=== PATIENT | male | born 1955 | race Hispanic/Latino ===

== ENCOUNTER 2020-08-28 | Emergency (ER) | payer BC ==
[2020-08-28 00:36] LABS: Hemoglobin 10.1 g/dL (14.0-18.0); Mean Corpuscular HGB CONC 29.8 g/dL (32.0-36.0); Mean Corpuscular Hemoglobin 23.8 pg (27.0-31.0); Mean Corpuscular Volume 79.9 fL (78.0-98.0); Mean Platelet Volume 9.2 fL (7.4-10.4); Platelet Count 176 thou/uL (130-400); RBC Distribution Width 17.1 % (11.5-14.5); Red Blood Cell (RBC) Count 4.26 mill/uL (4.70-6.10); White Blood Cell (WBC) Count 7.5 thou/uL (4.8-10.8)
[2020-08-28 00:53] LABS: Lymphocytes 57 % (21-51); MDiff Complete? YES; Monocytes 14 % (0-10); Neutrophil 29 % (42-75); Target Cells SLIGHT = 2-5 cells (100X) (0-1/hpf)
[2020-08-28 01:02] LABS: ALT (SGPT) 55 U/L (8-55); AST (SGOT) 103 U/L (5-34); Albumin 3.1 g/dL (3.4-4.8); Alkaline Phosphatase 111 U/L (40-110); Anion Gap 11 mmol/L (10-20); BUN (Urea Nitrogen) 14 mg/dL (8.4-25.7); Bilirubin, Total 0.5 mg/dL (0.2-1.2); Calc. Creatinine Clearance 0 mL/min (70-130); Calcium 8.7 mg/dL (7.8-10.44); Carbon Dioxide 22 mmol/L (23-31); Chloride 104 mmol/L (98-107); Globulin 6.5 g/dL (2.4-3.5); Glucose 120 mg/dL (80-115); Potassium 3.3 mmol/L (3.5-5.1); Protein, Total 9.6 g/dL (5.8-8.1); Sodium 134 mmol/L (136-145)
== END 2020-08-28 02:00 | disposition home or self-care (01) ==
LOC: ERS
DX: I49.1 Atrial premature depolarization (principal); I10 Essential (primary) hypertension; F17.210 Nicotine dependence, cigarettes, uncomplicated
CPT/HCPCS: 36415; 71045; 80053; 84484; 85025; 93005

== ENCOUNTER 2020-11-19 07:25 | Inpatient (IN) | payer BC ==
[2020-11-19 08:09] LABS: Hemoglobin 7.9 g/dL (14.0-18.0); Mean Corpuscular HGB CONC 30.6 g/dL (32.0-36.0); Mean Corpuscular Hemoglobin 26.6 pg (27.0-31.0); Mean Corpuscular Volume 87.2 fL (78.0-98.0); Mean Platelet Volume 8.3 fL (7.4-10.4); Platelet Count 197 thou/uL (130-400); RBC Distribution Width 16.2 % (11.5-14.5); Red Blood Cell (RBC) Count 2.98 mill/uL (4.70-6.10); White Blood Cell (WBC) Count 8.6 thou/uL (4.8-10.8)
[2020-11-19 08:21] LABS: ALT (SGPT) 63 U/L (8-55); AST (SGOT) 103 U/L (5-34); Albumin 2.6 g/dL (3.4-4.8); Alcohol Less than 10 mg/dL (Less than 10); Alkaline Phosphatase 82 U/L (40-110); Anion Gap 15 mmol/L (10-20); BUN (Urea Nitrogen) 33 mg/dL (8.4-25.7); Bilirubin, Total 0.5 mg/dL (0.2-1.2); Calc. Creatinine Clearance 0 mL/min (70-130); Calcium 8.2 mg/dL (7.8-10.44); Carbon Dioxide 15 mmol/L (23-31); Chloride 107 mmol/L (98-107); Globulin 5.4 g/dL (2.4-3.5); Glucose 138 mg/dL (80-115); Potassium 4.2 mmol/L (3.5-5.1); Sodium 133 mmol/L (136-145)
[2020-11-19 08:22] LABS: Band 1 % (5-11); Lymphocytes 44 % (21-51); MDiff Complete? YES; Monocytes 7 % (0-10); Neutrophil 46 % (42-75); Platelet Morphology Comment Appears Adequate
[2020-11-19] MEDS ORDERED: Morphine 4 MG/ML VIAL ONE (08:40)
[2020-11-19] MEDS ORDERED: Ondansetron PF 4 MG/2 ML Vial ONE ×2 (08:40→14:27)
[2020-11-19] MEDS ORDERED: Iopamidol-370 76% 500 ML 1 ML ONE (09:11)
[2020-11-19 10:13] LABS: Bilirubin Negative (Negative); Blood, Urine Negative (Negative); Clarity Clear (Clear); Glucose, Urine (Dipstick) Normal (Negative); Ketone, Urine 10 mg/dL (Negative); Leukocyte Negative Leu/uL (Negative); Nitrite Negative (Negative); Protein, Urine (Dipstick) Negative (Neg-Trace); Urobilinogen Normal mg/dL (Less than 2)
[2020-11-19 10:24] LABS: Specific Gravity, Urine 1.042 (1.002-1.036)
[2020-11-19] MEDS ORDERED: Ondansetron PF 4 MG/2 ML Vial IVP PRN (11:15)
[2020-11-19] MEDS ORDERED: Pantoprazole 40 MG VIAL ONE (11:24)
[2020-11-19] MEDS ORDERED: Pantoprazole 40 MG VIAL IVP SCH (11:45)
[2020-11-19] MEDS: Sodium Chloride 0.9% 1,000 ML IV SCH ×2 (13:06→22:35)
[2020-11-19] MEDS: Pantoprazole 80 MG in Sodium Chloride 0.9% 100 ML IVPB SCH ×2 (13:06→22:33)
[2020-11-19 13:20] VITALS: BMI 26.5
[2020-11-19 13:58] LABS: SARS-CoV-2 NAA Rapid Test Not Detected (NotDetected)
[2020-11-19] MEDS ORDERED: Fentanyl 100 MCG/2 ML VIAL ONE (14:00)
[2020-11-19] MEDS ORDERED: Ketamine 50 MG/ML (10ML VIAL) ONE (14:01)
[2020-11-19] MEDS ORDERED: SUGAMMADEX SODIUM 200 MG/2 ML VIAL ONE (14:01)
[2020-11-19] MEDS ORDERED: Midazolam HCl 2 mg/2 ml Vial ONE (14:01)
[2020-11-19] MEDS ORDERED: Succinylcholine 200 MG/10 ml SYRINGE FS ONE (14:27)
[2020-11-19] MEDS ORDERED: PROPOFOL 200 MG/20 ML VIAL ONE (14:27)
[2020-11-19] MEDS ORDERED: Dexamethasone 20 MG/5 ML VIAL ONE (14:27)
[2020-11-19 14:38] LABS: Troponin I 0.048 ng/mL (< 0.028)
[2020-11-19] MEDS ORDERED: Ondansetron HCl/PF 4 MG/2 ML Vial IVP PRN (15:08)
[2020-11-19] MEDS: Acetaminophen 325 MG TAB PO PRN (15:46)
[2020-11-19] MEDS ORDERED: Morphine 2 MG/ML VIAL SLOW IVP PRN (15:59)
[2020-11-19] MEDS: Melatonin 3 MG TAB PO PRN (22:32)
[2020-11-20] MEDS: Sodium Chloride 0.9% 1,000 ML IV SCH (07:59)
[2020-11-20 11:45] LABS: #Lymphocytes 2.5 thou/uL (1.20-3.40); #Monocytes 1.2 thou/uL (0.11-0.59); %Basophils 0.1 % (0.0-1.0); %Lymphocytes 19.4 % (21.0-51.0); %Monocytes 9.2 % (0.0-10.0); %Neutrophils 71.3 % (42.0-75.0); Hemoglobin 6.6 g/dL (14.0-18.0); Mean Corpuscular HGB CONC 30.2 g/dL (32.0-36.0); Mean Corpuscular Hemoglobin 26.4 pg (27.0-31.0); Mean Corpuscular Volume 87.3 fL (78.0-98.0); Mean Platelet Volume 7.7 fL (7.4-10.4); Platelet Count 205 thou/uL (130-400); RBC Distribution Width 16.4 % (11.5-14.5); White Blood Cell (WBC) Count 12.6 thou/uL (4.8-10.8)
[2020-11-20 12:07] LABS: Anion Gap 10 mmol/L (10-20); BUN (Urea Nitrogen) 18 mg/dL (8.4-25.7); Calc. Creatinine Clearance 98 mL/min (70-130); Carbon Dioxide 16 mmol/L (23-31); Chloride 112 mmol/L (98-107); Glucose 137 mg/dL (80-115); Iron 10 ug/dL (65-175); Iron 9 ug/dL (65-175); Iron Binding Capacity, Total 430 mcg/dL (261-462); Iron Binding Capacity, Total 438 mcg/dL (261-462); Sodium 134 mmol/L (136-145)
[2020-11-20 12:26] LABS: Ferritin 9.14 ng/mL (22-322)
[2020-11-20 12:40] LABS: HBCM Index 0.12 S/CO (0-0.79); HBSAg Index 0.21 S/CO (0-0.99); Hep A IgM AB Non-Reactive (NonReactive); Hep A IgM S/CO 0.75 S/CO (0-0.79); Hep B Surf Ag Non-Reactive S/CO (NonReactive); Hepatitis B Core IgM Abs Non-Reactive (NonReactive)
[2020-11-20 12:43] LABS: Hep C IgG Ab Reflex HepC Qnt (NonReactive); Hep C Index 7.59 S/CO (0-0.79)
[2020-11-20] MEDS: Acetaminophen 325 MG TAB PO PRN ×2 (13:55→23:49)
[2020-11-20] MEDS: Melatonin 3 MG TAB PO PRN (20:29)
[2020-11-20] MEDS: Pantoprazole 80 MG in Sodium Chloride 0.9% 100 ML IVPB SCH (22:13)
[2020-11-21 07:21] LABS: Hemoglobin 7.7 g/dL (14.0-18.0); Mean Corpuscular HGB CONC 30.9 g/dL (32.0-36.0); Mean Corpuscular Hemoglobin 27.4 pg (27.0-31.0); Mean Corpuscular Volume 88.8 fL (78.0-98.0); Mean Platelet Volume 7.9 fL (7.4-10.4); Platelet Count 223 thou/uL (130-400); RBC Distribution Width 16.1 % (11.5-14.5); Red Blood Cell (RBC) Count 2.81 mill/uL (4.70-6.10); White Blood Cell (WBC) Count 12.4 thou/uL (4.8-10.8)
[2020-11-21 07:38] LABS: ALT (SGPT) 50 U/L (8-55); AST (SGOT) 69 U/L (5-34); Albumin 2.7 g/dL (3.4-4.8); Alkaline Phosphatase 84 U/L (40-110); Bilirubin, Direct 0.4 mg/dL (0.1-0.3); Bilirubin, Total 0.7 mg/dL (0.2-1.2); Protein, Total 7.4 g/dL (5.8-8.1)
[2020-11-21] MEDS: Ferrous Sulfate 325 MG TAB PO SCH ×2 (08:27→17:53)
[2020-11-21 18:05] VITALS: BP 111/68; TEMP 98.7
[2020-11-22 11:39] LABS: HCV log10 5.422 (.); Hep C PCR-Quant 264000 IU/mL (.)
== END 2020-11-21 18:09 | disposition home or self-care (01) | DRG 378 ==
LOC: ERS 07:25 → INTOOBSV 10:58 → ERHOLD 10:58 → 2NO 12:47 → OBSVTOIN 11-21 06:31
PROVIDERS: ADMIT Internal Medicine; ATTEND Emergency Medicine
PROC: 0W3P8ZZ Control Bleeding in Gastrointestinal Tract, Via Natural or Artificial Opening Endoscopic (ICD-10-PCS; principal; 2020-11-21)
PROC: 30233N1 Transfusion of Nonautologous Red Blood Cells into Peripheral Vein, Percutaneous Approach (ICD-10-PCS; 2020-11-21)
DX: K25.0 Acute gastric ulcer with hemorrhage (principal); E87.1 Hypo-osmolality and hyponatremia; D62 Acute posthemorrhagic anemia; R94.5 Abnormal results of liver function studies; D50.9 Iron deficiency anemia, unspecified; I95.9 Hypotension, unspecified; Z90.49 Acquired absence of other specified parts of digestive tract; Z88.5 Allergy status to narcotic agent
CPT/HCPCS: 36415; 36430; 70450; 71275; 72125; 72128; 76705; 80048; 80053; 80074; 80076; 80307; 81003; 82728; 83540; 83550; 84484; 85025; 85027; 85379; 86850; 86900; 86901; 87522; 88305; 88312; 93005; 93306; 96374; 96375; 96376; C9113; G0378; J1100; J2250; J2270; J2405; J2704; J3010; J3490; P9016; Q9967; U0002; U0005

== ENCOUNTER 2020-11-24 02:24 | Emergency (ER) | payer BC | END 2020-11-24 04:14 | disposition home or self-care (01) | LOC: ERS 02:24 | DX: I80.8 Phlebitis and thrombophlebitis of other sites (principal); I10 Essential (primary) hypertension; F17.210 Nicotine dependence, cigarettes, uncomplicated; Z87.19 Personal history of other diseases of the digestive system; Z79.899 Other long term (current) drug therapy; Z79.1 Long term (current) use of non-steroidal anti-inflammatories (NSAID) | CPT/HCPCS: 99283 ==

== ENCOUNTER 2021-12-10 12:00 | Inpatient (IN) | payer BC ==
[2021-12-10] MEDS ORDERED: Pantoprazole 40 MG VIAL ONE (12:50)
[2021-12-10] MEDS ORDERED: Famotidine/PF 20 mg/2ml Vial ONE (12:50)
[2021-12-10] MEDS ORDERED: Morphine 4 MG/ML VIAL ONE ×2 (12:56→14:19)
[2021-12-10 13:33] LABS: ALT (SGPT) 46 U/L (8-55); AST (SGOT) 95 U/L (5-34); Albumin 2.5 g/dL (3.4-4.8); Alkaline Phosphatase 95 U/L (40-110); Anion Gap 11 mmol/L (10-20); BUN (Urea Nitrogen) 11 mg/dL (8.4-25.7); Bilirubin, Total 1.8 mg/dL (0.2-1.2); Calc. Creatinine Clearance 0 mL/min (70-130); Calcium 8.3 mg/dL (7.8-10.44); Carbon Dioxide 21 mmol/L (23-31); Chloride 108 mmol/L (98-107); Estimated GFR 100; Globulin 4.7 g/dL (2.4-3.5); Glucose 117 mg/dL (80-115); Lipase 15 U/L (8-78); Potassium 4.1 mmol/L (3.5-5.1); Protein, Total 7.2 g/dL (5.8-8.1); Sodium 136 mmol/L (136-145)
[2021-12-10 13:59] LABS: #Basophils 0.1 thou/uL (0.0-0.2); #Lymphocytes 2.2 thou/uL (1.20-3.40); #Monocytes 0.5 thou/uL (0.11-0.59); #Neutrophils 1.7 thou/uL (1.40-6.50); %Basophils 1.4 % (0.0-1.0); %Eosinophils 0.2 % (0.0-10.0); %Lymphocytes 48.8 % (21.0-51.0); %Monocytes 12.1 % (0.0-10.0); %Neutrophils 37.6 % (42.0-75.0); Hemoglobin 13.3 g/dL (14.0-18.0); MDiff Complete? YES; Macrocytosis MODERATE=16-30 cells (100X) (0-5/hpf); Mean Corpuscular HGB CONC 32.3 g/dL (32.0-36.0); Mean Corpuscular Hemoglobin 35.3 pg (27.0-31.0); Mean Platelet Volume 8.8 fL (7.4-10.4); Platelet Count 98 thou/uL (130-400); Platelet Morphology Comment Appears Decreased; Polychromasia SLIGHT = 2-3 cells (100X) (0-2/hpf); RBC Distribution Width 14.5 % (11.5-14.5); Red Blood Cell (RBC) Count 3.77 mill/uL (4.70-6.10); Target Cells SLIGHT = 2-5 cells (100X) (0-1/hpf); White Blood Cell (WBC) Count 4.5 thou/uL (4.8-10.8)
[2021-12-10] MEDS ORDERED: Ondansetron PF 4 MG/2 ML Vial IVP PRN (16:12)
[2021-12-10] MEDS ORDERED: Ondansetron ODT 4 MG TAB PO PRN (16:12)
[2021-12-10] MEDS ORDERED: hydrALAZINE 20 MG/ML VIAL SLOW IVP PRN (16:20)
[2021-12-10 16:50] VITALS: BMI 26.9
[2021-12-10 16:54] LABS: HBCM Index 0.22 S/CO (0-0.79); HBSAg Index 0.37 S/CO (0-0.99); Hep B Surf Ag Non-Reactive S/CO (NonReactive); Hepatitis B Core IgM Abs Non-Reactive (NonReactive)
[2021-12-10 17:58] LABS: Hep A IgM AB Equivocal (NonReactive); Hep A IgM S/CO 1.04 S/CO (0-0.79)
[2021-12-10] MEDS: Morphine 4 MG/ML VIAL SLOW IVP PRN ×2 (18:43→22:48)
[2021-12-11] MEDS: Morphine 4 MG/ML VIAL SLOW IVP PRN ×5 (02:53→22:04)
[2021-12-11 03:29] LABS: Amphetamine Not Detected (NotDetected); Barbiturates Screen Not Detected (NotDetected); Benzodiazepine Screen Not Detected (NotDetected); Cocaine Metabolite Screen Detected (NotDetected); Methadone Not Detected (NotDetected); Methamphetamine Not Detected (NotDetected); Opiate Screen Detected (NotDetected); Oxycodone Screen Not Detected (NotDetected); Phencyclidine (PCP) Not Detected (NotDetected); THC/Cannabinoid Screen Detected (NotDetected); Tricyclic Screen Detected (NotDetected)
[2021-12-11 05:45] LABS: INR-International Normal Ratio 1.5; Prothrombin Time 17.9 sec (12.0-14.7)
[2021-12-11 06:02] LABS: ALT (SGPT) 57 U/L (8-55); AST (SGOT) 113 U/L (5-34); Albumin 2.8 g/dL (3.4-4.8); Alkaline Phosphatase 123 U/L (40-110); Anion Gap 11 mmol/L (10-20); BUN (Urea Nitrogen) 9 mg/dL (8.4-25.7); Bilirubin, Total 1.6 mg/dL (0.2-1.2); Calc. Creatinine Clearance 93 mL/min (70-130); Calcium 8.6 mg/dL (7.8-10.44); Carbon Dioxide 23 mmol/L (23-31); Chloride 103 mmol/L (98-107); Estimated GFR 98; Globulin 4.9 g/dL (2.4-3.5); Glucose 120 mg/dL (80-115); Iron Binding Capacity, Total 328 mcg/dL (261-462); Potassium 3.7 mmol/L (3.5-5.1); Protein, Total 7.7 g/dL (5.8-8.1); Sodium 133 mmol/L (136-145)
[2021-12-11 06:21] LABS: Ferritin 49.33 ng/mL (22-322)
[2021-12-11 06:24] LABS: Band 3 % (5-11); Hemoglobin 13.7 g/dL (14.0-18.0); Lymphocytes 30 % (21-51); MDiff Complete? YES; Macrocytosis SLIGHT = 6-15 cells (100X) (0-5/hpf); Mean Corpuscular HGB CONC 31.5 g/dL (32.0-36.0); Mean Corpuscular Hemoglobin 34.9 pg (27.0-31.0); Mean Platelet Volume 8.9 fL (7.4-10.4); Monocytes 10 % (0-10); Neutrophil 54 % (42-75); Platelet Count 98 thou/uL (130-400); Platelet Morphology Comment Appears Decreased; RBC Distribution Width 14.5 % (11.5-14.5); Reactive Lymphocytes 3 % (0-10); Red Blood Cell (RBC) Count 3.91 mill/uL (4.70-6.10); White Blood Cell (WBC) Count 5.2 thou/uL (4.8-10.8)
[2021-12-11 07:09] LABS: HBSAB Concentration 73.81 mIU/mL; Hep B Surf AB Reactive (NonReactive)
[2021-12-11 07:54] LABS: Hep C IgG Ab Reflex HepC Qnt (NonReactive); Hep C Index 5.57 S/CO (0-0.79)
[2021-12-11] MEDS ORDERED: Pantoprazole 40 MG VIAL IVP SCH (09:00)
[2021-12-12] MEDS: Morphine 4 MG/ML VIAL SLOW IVP PRN ×3 (02:00→12:18)
[2021-12-12 05:32] LABS: #Lymphocytes 2.7 thou/uL (1.20-3.40); #Monocytes 0.7 thou/uL (0.11-0.59); #Neutrophils 2.1 thou/uL (1.40-6.50); %Basophils 0.4 % (0.0-1.0); %Eosinophils 0.2 % (0.0-10.0); %Monocytes 12.4 % (0.0-10.0); %Neutrophils 37.9 % (42.0-75.0); Hemoglobin 13.1 g/dL (14.0-18.0); Mean Corpuscular HGB CONC 32.5 g/dL (32.0-36.0); Mean Corpuscular Hemoglobin 35.7 pg (27.0-31.0); Mean Platelet Volume 8.9 fL (7.4-10.4); Platelet Count 78 thou/uL (130-400); RBC Distribution Width 14.3 % (11.5-14.5); Red Blood Cell (RBC) Count 3.68 mill/uL (4.70-6.10); White Blood Cell (WBC) Count 5.6 thou/uL (4.8-10.8)
[2021-12-12 05:50] LABS: ALT (SGPT) 56 U/L (8-55); AST (SGOT) 122 U/L (5-34); Albumin 2.5 g/dL (3.4-4.8); Alkaline Phosphatase 112 U/L (40-110); Anion Gap 14 mmol/L (10-20); BUN (Urea Nitrogen) 8 mg/dL (8.4-25.7); Bilirubin, Total 1.8 mg/dL (0.2-1.2); Calc. Creatinine Clearance 105 mL/min (70-130); Calcium 8.5 mg/dL (7.8-10.44); Carbon Dioxide 16 mmol/L (23-31); Chloride 106 mmol/L (98-107); Estimated GFR 101; Globulin 5.1 g/dL (2.4-3.5); Glucose 102 mg/dL (80-115); Potassium 4.2 mmol/L (3.5-5.1); Protein, Total 7.6 g/dL (5.8-8.1); Sodium 132 mmol/L (136-145)
[2021-12-12] MEDS ORDERED: Spironolactone 25 MG TAB PO SCH (08:00)
[2021-12-12 08:35] VITALS: BP 128/78; TEMP 97.5
[2021-12-12] MEDS ORDERED: Furosemide 20 MG TAB PO SCH (09:00)
[2021-12-12] MEDS ORDERED: Magnevist 469MG/ML 20 ML VIAL ONE (13:46)
== END 2021-12-12 14:30 | disposition home or self-care (01) | DRG 433 ==
LOC: ERS 12:00 → ERHOLD 15:01 → MSONC 16:37
PROVIDERS: ADMIT Hospitalist; ATTEND Internal Medicine
DX: K70.31 Alcoholic cirrhosis of liver with ascites (principal); D61.818 Other pancytopenia; J90 Pleural effusion, not elsewhere classified; R10.13 Epigastric pain; I10 Essential (primary) hypertension; F19.10 Other psychoactive substance abuse, uncomplicated; B18.2 Chronic viral hepatitis C; F17.210 Nicotine dependence, cigarettes, uncomplicated; Z87.11 Personal history of peptic ulcer disease; Z88.6 Allergy status to analgesic agent; Z79.899 Other long term (current) drug therapy; Z90.49 Acquired absence of other specified parts of digestive tract; Z82.49 Family history of ischemic heart disease and other diseases of the circulatory system; Z71.51 Drug abuse counseling and surveillance of drug abuser
CPT/HCPCS: 36415; 49083; 74177; 74183; 80053; 80074; 80306; 82105; 82390; 82728; 83516; 83550; 83690; 84484; 85025; 85610; 86015; 86706; 86708; 86850; 86900; 86901; 93005; 96361; 96374; 96375; 96376; A9579; C9113; J2270; S0028; U0003; U0005

== ENCOUNTER 2022-02-16 18:04 | Emergency (ER) | payer BC ==
[~2022-02-16 18:04] MED LIST: Iopamidol-370 76% 500 ML 1 ML ONE
[2022-02-16] MEDS ORDERED: Morphine 4 MG/ML VIAL ONE ×2 (18:33→20:57)
[2022-02-16] MEDS ORDERED: Ondansetron PF 4 MG/2 ML Vial ONE (18:34)
[2022-02-16] MEDS ORDERED: Pantoprazole 40 MG VIAL ONE (18:50)
[2022-02-16 18:51] LABS: Hemoglobin 12.4 g/dL (14.0-18.0); Mean Corpuscular HGB CONC 33.8 g/dL (32.0-36.0); Mean Corpuscular Hemoglobin 38.4 pg (27.0-31.0); Platelet Count 73 thou/uL (130-400); RBC Distribution Width 14.4 % (11.5-14.5); Red Blood Cell (RBC) Count 3.23 mill/uL (4.70-6.10); White Blood Cell (WBC) Count 4.5 thou/uL (4.8-10.8)
[2022-02-16] MEDS ORDERED: Mag-Al 1200 mg/1200 mg/30 ML UDCUP ONE (18:51)
[2022-02-16] MEDS ORDERED: Lidocaine Viscous Sol 2% 15 ml UD Cup ONE (18:51)
[2022-02-16 19:09] LABS: ALT (SGPT) 52 U/L (8-55); AST (SGOT) 106 U/L (5-34); Albumin 2.4 g/dL (3.4-4.8); Alkaline Phosphatase 116 U/L (40-110); Anion Gap 11 mmol/L (10-20); BUN (Urea Nitrogen) 11 mg/dL (8.4-25.7); Band 2 % (5-11); Bilirubin, Total 2.6 mg/dL (0.2-1.2); Calc. Creatinine Clearance 0 mL/min (70-130); Calcium 8.3 mg/dL (7.8-10.44); Carbon Dioxide 21 mmol/L (23-31); Chloride 108 mmol/L (98-107); Estimated GFR 101; Globulin 5.2 g/dL (2.4-3.5); Glucose 126 mg/dL (80-115); Lipase 24 U/L (8-78); Lymphocytes 51 % (21-51); MDiff Complete? YES; Macrocytosis SLIGHT = 6-15 cells (100X) (0-5/hpf); Monocytes 9 % (0-10); Neutrophil 37 % (42-75); Platelet Morphology Comment Appears Decreased; Potassium 3.5 mmol/L (3.5-5.1); Protein, Total 7.6 g/dL (5.8-8.1); Sodium 136 mmol/L (136-145)
[2022-02-16 21:41] LABS: Lactic Acid 1.3 mmol/L (0.5-2.2)
== END 2022-02-16 22:07 | disposition home or self-care (01) ==
LOC: ERS 18:04
DX: R10.13 Epigastric pain (principal); R17 Unspecified jaundice; F17.210 Nicotine dependence, cigarettes, uncomplicated; D64.9 Anemia, unspecified; D72.819 Decreased white blood cell count, unspecified
CPT/HCPCS: 71045; 74177; 80053; 83605; 83690; 84484; 85025; 93005; 96374; 96375; 96376; C9113; J2270; J2405; Q9967

== ENCOUNTER 2022-05-16 14:46 | Inpatient (IN) | payer BC, SELFPAY ==
[2022-05-16] MEDS ORDERED: Ondansetron PF 4 MG/2 ML Vial ONE (15:35)
[2022-05-16] MEDS ORDERED: LORazepam 2 MG/ML SYR.(CARPUJECT) ONE (15:35)
[2022-05-16] MEDS ORDERED: Morphine 4 MG/ML VIAL ONE (15:35)
[2022-05-16] MEDS ORDERED: Iopamidol-370 76% 500 ML 1 ML ONE (15:51)
[2022-05-16 16:37] LABS: Hemoglobin 12.2 g/dL (14.0-18.0); Mean Corpuscular HGB CONC 33.4 g/dL (32.0-36.0); Mean Corpuscular Hemoglobin 39.7 pg (27.0-31.0); Mean Platelet Volume 8.2 fL (7.4-10.4); Platelet Count 99 10x3/uL (130-400); RBC Distribution Width 14.3 % (11.5-14.5); Red Blood Cell (RBC) Count 3.08 mill/uL (4.70-6.10); White Blood Cell (WBC) Count 3.9 10x3/uL (4.8-10.8)
[2022-05-16 16:59] LABS: ALT (SGPT) 31 U/L (8-55); AST (SGOT) 71 U/L (5-34); Albumin 2.6 g/dL (3.4-4.8); Alkaline Phosphatase 142 U/L (40-110); Anion Gap 12 mmol/L (10-20); BUN (Urea Nitrogen) 23 mg/dL (8.4-25.7); Bilirubin, Total 3.1 mg/dL (0.2-1.2); CK (CPK) 58 U/L (30-200); Calc. Creatinine Clearance 0 mL/min (70-130); Calcium 8.7 mg/dL (7.8-10.44); Carbon Dioxide 21 mmol/L (23-31); Chloride 101 mmol/L (98-107); Estimated GFR 79; Globulin 5.3 g/dL (2.4-3.5); Glucose 105 mg/dL (80-115); Lipase 23 U/L (8-78); Potassium 4.3 mmol/L (3.5-5.1); Protein, Total 7.9 g/dL (5.8-8.1); Sodium 130 mmol/L (136-145)
[2022-05-16 17:00] LABS: Lymphocytes 19 % (21-51); MDiff Complete? YES; Macrocytosis SLIGHT = 6-15 cells (100X) (0-5/hpf); Monocytes 15 % (0-10); Neutrophil 66 % (42-75); Platelet Morphology Comment Appears Decreased
[2022-05-16 18:28] LABS: INR-International Normal Ratio 1.6; Prothrombin Time 19.4 sec (12.0-14.7)
[2022-05-16 18:29] LABS: PTT 43.2 sec (22.9-36.1)
[2022-05-16] MEDS ORDERED: Heparin 10,000 UNITS/ 10 ML VIAL ONE (19:36)
[2022-05-16] MEDS ORDERED: Heparin 25,000 units/D5W 500 ML ONE (19:36)
[2022-05-16] MEDS ORDERED: Ondansetron ODT 4 MG TAB PO PRN (19:48)
[2022-05-16] MEDS ORDERED: Heparin 10,000 UNITS/ 10 ML VIAL SLOW IVP SCH (20:00)
[2022-05-16] MEDS ORDERED: Heparin 25,000 units/D5W 500 ML IVPB SCH (20:00)
[2022-05-16] MEDS: Acetaminophen 500 MG TAB PO PRN (22:13)
[2022-05-16] MEDS: Sodium Chloride 0.9% 1,000 ML IV SCH (22:13)
[2022-05-16] MEDS: cefTRIAXone\\ROCEPHIN 1 GM in Sodium Chloride 0.9% 100 ML IVPB SCH (22:13)
[2022-05-16] MEDS: Morphine 4 MG/ML VIAL SLOW IVP PRN (22:51)
[2022-05-17 03:30] LABS: Anion Gap 13 mmol/L (10-20); BUN (Urea Nitrogen) 22 mg/dL (8.4-25.7); Calc. Creatinine Clearance 91 mL/min (70-130); Calcium 8.7 mg/dL (7.8-10.44); Carbon Dioxide 19 mmol/L (23-31); Chloride 102 mmol/L (98-107); Estimated GFR 95; Glucose 105 mg/dL (80-115); Potassium 4.4 mmol/L (3.5-5.1); Sodium 130 mmol/L (136-145)
[2022-05-17 03:35] LABS: #Monocytes 0.5 thou/uL (0.11-0.59); #Neutrophils 2.6 thou/uL (1.40-6.50); %Basophils 0.6 % (0.0-1.0); %Eosinophils 0.1 % (0.0-10.0); %Lymphocytes 25.3 % (21.0-51.0); %Monocytes 11.7 % (0.0-10.0); %Neutrophils 62.4 % (42.0-75.0); Hemoglobin 12.3 g/dL (14.0-18.0); MDiff Complete? YES; Macrocytosis MODERATE=16-30 cells (100X) (0-5/hpf); Mean Corpuscular HGB CONC 34.3 g/dL (32.0-36.0); Mean Corpuscular Hemoglobin 42.1 pg (27.0-31.0); Mean Platelet Volume 7.9 fL (7.4-10.4); Platelet Count 85 10x3/uL (130-400); Platelet Morphology Comment Appears Decreased; RBC Distribution Width 14.4 % (11.5-14.5); Red Blood Cell (RBC) Count 2.92 mill/uL (4.70-6.10); Target Cells SLIGHT = 2-5 cells (100X) (0-1/hpf); White Blood Cell (WBC) Count 4.1 10x3/uL (4.8-10.8)
[2022-05-17 03:37] LABS: PTT Greater than 250.0 sec (22.9-36.1)
[2022-05-17] MEDS: Morphine 4 MG/ML VIAL SLOW IVP PRN ×4 (05:03→20:12)
[2022-05-17 05:37] LABS: PTT Greater than 250.0 sec (22.9-36.1)
[2022-05-17 06:52] VITALS: BMI 25.7
[2022-05-17] MEDS ORDERED: FLU VACC QS2022-23(65YR UP)/PF 240 MCG/0.7 ML SYRINGE IM ONE (09:00)
[2022-05-17] MEDS: Sodium Chloride 0.9% 1,000 ML IV SCH (09:10)
[2022-05-17] MEDS ORDERED: Morphine 4 MG/ML VIAL SLOW IVP SCH (11:00)
[2022-05-17] MEDS: Albumin 25% 25 GM/100 ML BOT IVPB SCH ×3 (11:37→23:12)
[2022-05-17 16:04] LABS: PTT Greater than 250.0 sec (22.9-36.1)
[2022-05-17] MEDS: cefTRIAXone\\ROCEPHIN 1 GM in Sodium Chloride 0.9% 100 ML IVPB SCH (20:11)
[2022-05-18] MEDS: Morphine 4 MG/ML VIAL SLOW IVP PRN ×5 (00:30→23:41)
[2022-05-18] MEDS: Albumin 25% 25 GM/100 ML BOT IVPB SCH (05:31)
[2022-05-18 06:01] LABS: Anion Gap 9 mmol/L (10-20); BUN (Urea Nitrogen) 20 mg/dL (8.4-25.7); Calc. Creatinine Clearance 102 mL/min (70-130); Calcium 8.5 mg/dL (7.8-10.44); Carbon Dioxide 23 mmol/L (23-31); Chloride 103 mmol/L (98-107); Estimated GFR 98; Glucose 102 mg/dL (80-115); Potassium 4.1 mmol/L (3.5-5.1); Sodium 131 mmol/L (136-145)
[2022-05-18 06:19] LABS: Hemoglobin 9.5 g/dL (14.0-18.0); Lymphocytes 45 % (21-51); MDiff Complete? YES; Mean Corpuscular HGB CONC 32.1 g/dL (32.0-36.0); Mean Corpuscular Hemoglobin 38.5 pg (27.0-31.0); Mean Platelet Volume 8.2 fL (7.4-10.4); Monocytes 8 % (0-10); Neutrophil 45 % (42-75); Platelet Count 87 10x3/uL (130-400); Platelet Morphology Comment Appears Decreased; RBC Distribution Width 14.3 % (11.5-14.5); Red Blood Cell (RBC) Count 2.47 mill/uL (4.70-6.10); White Blood Cell (WBC) Count 5.9 10x3/uL (4.8-10.8)
[2022-05-18] MEDS ORDERED: PROPOFOL 200 MG/20 ML VIAL ONE (08:30)
[2022-05-18] MEDS ORDERED: Ondansetron HCl/PF 4 MG/2 ML Vial IVP PRN (08:39)
[2022-05-18] MEDS ORDERED: Promethazine HCl 25 MG/ML VIAL IM PRN (08:39)
[2022-05-18] MEDS ORDERED: Promethazine HCl 25 MG/ML VIAL IVPB PRN (08:39)
[2022-05-18] MEDS ORDERED: Nitroglycerin 0.4 MG TAB (25 Tab Bottle) ONE (09:47)
[2022-05-18] MEDS: Pantoprazole 40 MG VIAL IVP SCH (09:50)
[2022-05-18] MEDS: Acetaminophen 500 MG TAB PO PRN (11:17)
[2022-05-18] MEDS: Ondansetron PF 4 MG/2 ML Vial IVP PRN ×2 (15:34→23:41)
[2022-05-18] MEDS: cefTRIAXone\\ROCEPHIN 1 GM in Sodium Chloride 0.9% 100 ML IVPB SCH (19:42)
[2022-05-19] MEDS: Morphine 4 MG/ML VIAL SLOW IVP PRN ×3 (03:18→12:16)
[2022-05-19] MEDS: Pantoprazole 40 MG VIAL IVP SCH (08:07)
[2022-05-19 08:34] LABS: Hemoglobin 9.7 g/dL (14.0-18.0); Mean Corpuscular HGB CONC 32.8 g/dL (32.0-36.0); Mean Corpuscular Hemoglobin 39.4 pg (27.0-31.0); Platelet Count 85 10x3/uL (130-400); RBC Distribution Width 14.3 % (11.5-14.5); Red Blood Cell (RBC) Count 2.47 mill/uL (4.70-6.10); White Blood Cell (WBC) Count 4.8 10x3/uL (4.8-10.8)
[2022-05-19 08:48] LABS: Anion Gap 9 mmol/L (10-20); BUN (Urea Nitrogen) 16 mg/dL (8.4-25.7); Calc. Creatinine Clearance 114 mL/min (70-130); Calcium 8.3 mg/dL (7.8-10.44); Carbon Dioxide 22 mmol/L (23-31); Chloride 104 mmol/L (98-107); Estimated GFR 101; Glucose 83 mg/dL (80-115); Potassium 3.9 mmol/L (3.5-5.1); Sodium 131 mmol/L (136-145)
[2022-05-19 09:03] LABS: INR-International Normal Ratio 1.9; PTT 45.7 sec (22.9-36.1); Prothrombin Time 22.8 sec (12.0-14.7)
[2022-05-19] MEDS ORDERED: PROPOFOL 200 MG/20 ML VIAL ONE (09:53)
[2022-05-19] MEDS ORDERED: Lidocaine 1% PF 5 ML VIAL ONE (10:51)
[2022-05-19 12:50] LABS: RBC Count-Automated (BF) 130 /cu.mm; WBC/Nucleated-Auto (BF) 319 /cu.mm
[2022-05-19 13:05] LABS: BF Color Yellow; Body Fluid Source Ascites Body Fluid; Clarity Hazy (Clear); Tube # EDTA
[2022-05-19 13:48] LABS: BF Segmented Neutrophils 7 %; Cell Count Non Hematic 60 %; Lymphocytes 33 %
[2022-05-19] MEDS ORDERED: Heparin 10,000 UNITS/ 10 ML VIAL SLOW IVP SCH (14:15)
[2022-05-19] MEDS ORDERED: Heparin 25,000 units/D5W 500 ML IVPB SCH (14:15)
[2022-05-19 15:07] LABS: Hemoglobin 10.5 g/dL (14.0-18.0); Platelet Count 89 10x3/uL (130-400)
[2022-05-19] MEDS: cefTRIAXone\\ROCEPHIN 1 GM in Sodium Chloride 0.9% 100 ML IVPB SCH (21:01)
[2022-05-19] MEDS: Acetaminophen 500 MG TAB PO PRN (21:02)
[2022-05-19 22:19] LABS: PTT Greater than 250.0 sec (22.9-36.1)
[2022-05-20 07:56] LABS: Anion Gap 7 mmol/L (10-20); BUN (Urea Nitrogen) 13 mg/dL (8.4-25.7); Calc. Creatinine Clearance 119 mL/min (70-130); Calcium 7.9 mg/dL (7.8-10.44); Carbon Dioxide 24 mmol/L (23-31); Chloride 106 mmol/L (98-107); Estimated GFR 103; Glucose 106 mg/dL (80-115); Sodium 133 mmol/L (136-145)
[2022-05-20 08:39] VITALS: BP 96/61; TEMP 98.6
[2022-05-20] MEDS: Morphine 4 MG/ML VIAL SLOW IVP PRN (09:14)
[2022-05-20] MEDS: Pantoprazole 40 MG VIAL IVP SCH (09:15)
[2022-05-20 09:25] LABS: PTT Greater than 250.0 sec (22.9-36.1)
[2022-05-20 09:54] LABS: Hemoglobin 9.8 g/dL (14.0-18.0); Mean Corpuscular HGB CONC 32.7 g/dL (32.0-36.0); Mean Platelet Volume 8.3 fL (7.4-10.4); Platelet Count 94 10x3/uL (130-400); RBC Distribution Width 14.2 % (11.5-14.5); White Blood Cell (WBC) Count 4.9 10x3/uL (4.8-10.8)
[2022-05-20 10:22] LABS: Band 1 % (5-11); Lymphocytes 43 % (21-51); MDiff Complete? YES; Macrocytosis MODERATE=16-30 cells (100X) (0-5/hpf); Monocytes 11 % (0-10); Neutrophil 45 % (42-75); Platelet Morphology Comment Appears Decreased; Polychromasia SLIGHT = 2-3 cells (100X) (0-2/hpf); Target Cells SLIGHT = 2-5 cells (100X) (0-1/hpf)
== END 2022-05-20 13:20 | disposition left against medical advice (07) | DRG 432 ==
LOC: ERS 14:46 → NEURO 19:47 → T4-A 05-18 15:19
PROVIDERS: ADMIT Family Medicine; ATTEND Family Medicine
PROC: 0DJ08ZZ Inspection of Upper Intestinal Tract, Via Natural or Artificial Opening Endoscopic (ICD-10-PCS; principal; 2022-05-18)
PROC: 0DJ08ZZ Inspection of Upper Intestinal Tract, Via Natural or Artificial Opening Endoscopic (ICD-10-PCS; 2022-05-19)
PROC: 0W9G3ZZ Drainage of Peritoneal Cavity, Percutaneous Approach (ICD-10-PCS; 2022-05-19)
DX: K74.69 Other cirrhosis of liver (principal); Z20.822 Contact with and (suspected) exposure to COVID-19; Z23 Encounter for immunization; I81 Portal vein thrombosis; D61.818 Other pancytopenia; D62 Acute posthemorrhagic anemia; K76.6 Portal hypertension; R18.8 Other ascites; E87.1 Hypo-osmolality and hyponatremia; B19.20 Unspecified viral hepatitis C without hepatic coma; R04.0 Epistaxis; K31.89 Other diseases of stomach and duodenum; Z87.11 Personal history of peptic ulcer disease; Z88.5 Allergy status to narcotic agent; Z79.899 Other long term (current) drug therapy; Z90.49 Acquired absence of other specified parts of digestive tract; Z82.49 Family history of ischemic heart disease and other diseases of the circulatory system
CPT/HCPCS: 36415; 49083; 74018; 74177; 80048; 80053; 82550; 83690; 85025; 85027; 85060; 85610; 85730; 87070; 87205; 89051; 90471; 90662; 96365; 96375; C9113; G0008; J0696; J1644; J2060; J2270; J2405; J2704; J3490; J7050; P9047; Q9967; U0003; U0005

== ENCOUNTER 2022-06-28 16:05 | Inpatient (IN) | payer SELFPAY ==
[2022-06-28] MEDS ORDERED: Cefepime 2 GM VIAL ONE (16:40)
[2022-06-28] MEDS ORDERED: Vancomycin 1 GM/200 ML (FROZEN) BAG ONE (16:40)
[2022-06-28 16:43] LABS: Analyzer IN Cardio ER; Base Excess -8.7 mEq/L (-2.0 to +3.0); Calcium, Ionized (venous) 1.02 mmol/L (1.16-1.32); Chloride (VBG) 100 mmol/L (98-106); Hemoglobin (Hb) 13.4 g/dL (12.6-17.4); Potassium (VBG) 5.38 mmol/L (3.70-5.30); Sodium 128.3 mmol/L (133-146); pH (venous) 7.42 (7.32-7.43)
[2022-06-28 16:45] LABS: Actual Bicarbonate (HCO3v) 14 mEq/L (22-28)
[2022-06-28 16:48] LABS: Bilirubin Negative (Negative); Blood, Urine Negative (Negative); Clarity Clear (Clear); Glucose, Urine (Dipstick) Normal (Negative); Ketone, Urine Negative (Negative); Leukocyte Negative Leu/uL (Negative); Nitrite Negative (Negative); Protein, Urine (Dipstick) 10 mg/dL (Neg-Trace); Specific Gravity, Urine 1.018 (1.002-1.036); Urobilinogen Normal mg/dL (Less than 2); pH, Urine 5.5 (5.0-9.0)
[2022-06-28 16:57] LABS: Amphetamine Not Detected (NotDetected); Barbiturates Screen Not Detected (NotDetected); Benzodiazepine Screen Not Detected (NotDetected); Cocaine Metabolite Screen Detected (NotDetected); Methadone Not Detected (NotDetected); Methamphetamine Not Detected (NotDetected); Opiate Screen Not Detected (NotDetected); Oxycodone Screen Not Detected (NotDetected); Phencyclidine (PCP) Not Detected (NotDetected); THC/Cannabinoid Screen Not Detected (NotDetected); Tricyclic Screen Not Detected (NotDetected)
[2022-06-28 16:58] LABS: Hemoglobin 12.8 g/dL (14.0-18.0); Mean Corpuscular HGB CONC 35.3 g/dL (32.0-36.0); Mean Corpuscular Hemoglobin 42.8 pg (27.0-31.0); Mean Platelet Volume 8.5 fL (7.4-10.4); Platelet Count 92 10x3/uL (130-400)
[2022-06-28 17:08] LABS: INR-International Normal Ratio 1.8; PTT 38.5 sec (22.9-36.1)
[2022-06-28 17:15] LABS: Acetaminophen Less than 10.0 mcg/mL (10.0-30.0); Alcohol Less than 10 mg/dL (Less than 10); Lipase 42 U/L (8-78); Salicylate Less than 8.0 mg/dL (15.0-30.0)
[2022-06-28 17:16] LABS: ALT (SGPT) 25 U/L (8-55); AST (SGOT) 54 U/L (5-34); Albumin 2.5 g/dL (3.4-4.8); Alkaline Phosphatase 94 U/L (40-110); Anion Gap 25 mmol/L (10-20); BUN (Urea Nitrogen) 94 mg/dL (8.4-25.7); Bilirubin, Total 5.6 mg/dL (0.2-1.2); Calc. Creatinine Clearance 0 mL/min (70-130); Calcium 9.5 mg/dL (7.8-10.44); Carbon Dioxide 11 mmol/L (23-31); Chloride 100 mmol/L (98-107); Estimated GFR 16; Glucose 80 mg/dL (80-115); Potassium 5.5 mmol/L (3.5-5.1); Protein, Total 7.5 g/dL (5.8-8.1); Sodium 130 mmol/L (136-145)
[2022-06-28 17:22] LABS: Band 15 % (5-11); Lymphocytes 10 % (21-51); MDiff Complete? YES; Macrocytosis MODERATE=16-30 cells (100X) (0-5/hpf); Monocytes 17 % (0-10); Neutrophil 57 % (42-75); Platelet Morphology Comment Appears Decreased; Polychromasia SLIGHT = 2-3 cells (100X) (0-2/hpf)
[2022-06-28 17:34] LABS: CKMB 3.4 ng/mL (0-6.6)
[2022-06-28 20:48] LABS: Lactic Acid 5.7 mmol/L (0.5-2.2)
[2022-06-28] MEDS ORDERED: Sodium Bicarbonate 2.5 MEQ/5 ML VIAL ONE (20:55)
[2022-06-28] MEDS ORDERED: Famotidine/PF 20 mg/2ml Vial SLOW IVP SCH ×2 (21:00)
[2022-06-28] MEDS ORDERED: Sodium Bicarbonate 150 MEQ in Dextrose 5% in Water 1,000 ML IV SCH (21:00)
[2022-06-28] MEDS ORDERED: Piperacillin/Tazobactam 3.375 GM in Sodium Chloride 0.9% 100 ML IVPB SCH (21:30)
[2022-06-28] MEDS ORDERED: Piperacillin/Tazobactam 2.25 GM in Sodium Chloride 0.9% 100 ML IVPB SCH (22:00)
[2022-06-28 22:09] LABS: Troponin I 0.033 ng/mL (< 0.028)
[2022-06-28] MEDS: Sodium Bicarbonate 150 MEQ in Dextrose 5% in Water 1,000 ML IV SCH (22:10)
[2022-06-28] MEDS ORDERED: Vancomycin Dose by Levels Sliding Scale (Wt <71) FS SCH (23:00)
[2022-06-28 23:39] LABS: Lactic Acid 5.1 mmol/L (0.5-2.2)
[2022-06-29] MEDS: Piperacillin/Tazobactam 3.375 GM in Sodium Chloride 0.9% 100 ML IVPB SCH ×2 (02:41→14:58)
[2022-06-29 04:25] LABS: Lactic Acid 4.2 mmol/L (0.5-2.2); Phosphorus 5.7 mg/dL (2.3-4.7)
[2022-06-29 04:28] LABS: ALT (SGPT) 24 U/L (8-55); AST (SGOT) 52 U/L (5-34); Albumin 2.3 g/dL (3.4-4.8); Alkaline Phosphatase 82 U/L (40-110); Anion Gap 19 mmol/L (10-20); BUN (Urea Nitrogen) 99 mg/dL (8.4-25.7); Bilirubin, Total 4.9 mg/dL (0.2-1.2); CK (CPK) 51 U/L (30-200); Calc. Creatinine Clearance 17 mL/min (70-130); Calcium 9.2 mg/dL (7.8-10.44); Carbon Dioxide 14 mmol/L (23-31); Chloride 100 mmol/L (98-107); Estimated GFR 16; Globulin 4.2 g/dL (2.4-3.5); Glucose 136 mg/dL (80-115); Magnesium 2.2 mg/dL (1.6-2.6); Potassium 5.1 mmol/L (3.5-5.1); Protein, Total 6.5 g/dL (5.8-8.1); Sodium 128 mmol/L (136-145)
[2022-06-29 04:45] LABS: Band 38 % (5-11); Hemoglobin 11.6 g/dL (14.0-18.0); Lymphocytes 7 % (21-51); MDiff Complete? YES; Macrocytosis MODERATE=16-30 cells (100X) (0-5/hpf); Mean Corpuscular HGB CONC 32.9 g/dL (32.0-36.0); Mean Corpuscular Hemoglobin 39.6 pg (27.0-31.0); Mean Platelet Volume 8.5 fL (7.4-10.4); Monocytes 9 % (0-10); Neutrophil 46 % (42-75); Platelet Count 82 10x3/uL (130-400); Platelet Morphology Comment Appears Decreased; RBC Distribution Width 14.2 % (11.5-14.5); Red Blood Cell (RBC) Count 2.93 mill/uL (4.70-6.10); Target Cells SLIGHT = 2-5 cells (100X) (0-1/hpf)
[2022-06-29 05:38] LABS: SARS-CoV-2 NAA Rapid Test Not Detected (NotDetected)
[2022-06-29 07:37] LABS: Lactic Acid 3.6 mmol/L (0.5-2.2)
[2022-06-29] MEDS: Sodium Bicarbonate 150 MEQ in Dextrose 5% in Water 1,000 ML IV SCH (07:51)
[2022-06-29] MEDS ORDERED: FLU VACC QS2022-23(65YR UP)/PF 240 MCG/0.7 ML SYRINGE IM ONE (09:00)
[2022-06-29] MEDS: Pantoprazole 40 MG VIAL IVP SCH ×2 (09:32→20:56)
[2022-06-29] MEDS: Heparin 5,000 UNITS/ML VIAL SC SCH ×3 (09:32→20:54)
[2022-06-29] MEDS ORDERED: Sodium Bicarbonate 150 MEQ in Dextrose 5% in Water 1,000 ML IV SCH (11:30)
[2022-06-29] MEDS ORDERED: Rocuronium Bromide 50 MG/5 ML VIAL ONE (13:15)
[2022-06-29] MEDS ORDERED: Rocuronium Bromide 10 MG/ML (10ML VIAL) IVP SCH ×2 (13:30→13:58)
[2022-06-29] MEDS ORDERED: Ventilator Sedation Protocol 1 EACH FS SCH (14:00)
[2022-06-29] MEDS ORDERED: Rocuronium Bromide 50 MG/5 ML VIAL IVP SCH (14:00)
[2022-06-29] MEDS ORDERED: Midazolam HCl 2 mg/2 ml Vial SLOW IVP PRN (14:02)
[2022-06-29] MEDS ORDERED: DISCONTINUE PREVIOUS NARCOTIC PAIN MEDICATIONS AND BENZODIAZEPINES FS SCH (14:15)
[2022-06-29] MEDS ORDERED: Propofol BOLUS 1,000 MG/100 ML VIAL IV PRN (14:15)
[2022-06-29] MEDS ORDERED: Morphine 4 MG/ML VIAL SLOW IVP PRN (14:15)
[2022-06-29] MEDS ORDERED: Propofol 1,000 MG/100 ML VIAL IV PRN (14:15)
[2022-06-29 14:48] LABS: Actual Bicarbonate (HCO3a) 21.5 mEq/L (22-28); Base Excess (BEa) -0.4 mEq/L (-2.0 to +3.0); CO2 Tension 27.6 mmHg (35.0-45.0); Calcium, Ionized (arterial) 1.08 mmol/L (1.12-1.30); Carboxyhemoglobin (COHb) 0.7 gm% (0.0-3.0); Hemoglobin (Hb) 12.6 g/dL (14.0-18.0); O2 Tension (PaO2), arterial 82.6 mmHg (> 80.0); Potassium - ABG Lab 4.55 mmol/L (3.70-5.30); pH, Arterial 7.51 (7.35-7.45)
[2022-06-29 14:50] LABS: Puncture Site LRA
[2022-06-29 15:31] LABS: Vancomycin, Random 14.4 ug/mL (See Comment)
[2022-06-29] MEDS ORDERED: Vancomycin Dose by Levels Sliding Scale (Wt <71) FS SCH (16:15)
[2022-06-29] MEDS ORDERED: Vancomycin HCl 500 MG in Sodium Chloride 0.9% 100 ML IVPB SCH (16:15)
[2022-06-29] MEDS ORDERED: cefTRIAXone\\ROCEPHIN 1 GM in Sodium Chloride 0.9% 100 ML IVPB SCH (16:45)
[2022-06-29] MEDS ORDERED: Vancomycin HCl 125 MG/5 ML (BATCHED) UDCUP PER TUBE SCH (16:45)
[2022-06-29 18:39] LABS: HIV (1/2) Antibody/Antigen Non-Reactive (NonReactive); HIV 1/2 INDEX 0.12 S/CO (<1.00)
[2022-06-29 18:44] LABS: Hep C IgG Ab Reflex HepC Qnt (NonReactive); Hep C Index 3.18 S/CO (0-0.79)
[2022-06-29 19:19] LABS: Campy jejuni + coli by PCR Negative (Negative); STEC Shiga Toxin 1+2 Negative (Negative); Salmonella spp. by PCR Negative (Negative); Shigella spp + EIEC by PCR Negative (Negative)
[2022-06-29] MEDS: metroNIDAZOLE 500 MG in Premix Bag 1 BAG IVPB SCH (20:56)
[2022-06-29] MEDS ORDERED: Famotidine/PF 20 mg/2ml Vial SLOW IVP SCH (21:00)
[2022-06-30] MEDS: Vancomycin HCl 125 MG/5 ML (BATCHED) UDCUP PER TUBE SCH ×2 (00:25→06:24)
[2022-06-30 05:03] LABS: Prothrombin Time 23.8 sec (12.0-14.7)
[2022-06-30 05:08] LABS: ALT (SGPT) 24 U/L (8-55); AST (SGOT) 49 U/L (5-34); Albumin 2.4 g/dL (3.4-4.8); Alkaline Phosphatase 85 U/L (40-110); Anion Gap 21 mmol/L (10-20); BUN (Urea Nitrogen) 107 mg/dL (8.4-25.7); Bilirubin, Total 4.5 mg/dL (0.2-1.2); Calc. Creatinine Clearance 14 mL/min (70-130); Calcium 9.2 mg/dL (7.8-10.44); Carbon Dioxide 17 mmol/L (23-31); Chloride 99 mmol/L (98-107); Estimated GFR 12; Globulin 4.4 g/dL (2.4-3.5); Glucose 125 mg/dL (80-115); Potassium 4.6 mmol/L (3.5-5.1); Protein, Total 6.8 g/dL (5.8-8.1); Sodium 132 mmol/L (136-145)
[2022-06-30] MEDS: metroNIDAZOLE 500 MG in Premix Bag 1 BAG IVPB SCH (06:23)
[2022-06-30 06:53] LABS: Band 24 % (5-11); Hemoglobin 11.4 g/dL (14.0-18.0); Lymphocytes 6 % (21-51); MDiff Complete? YES; Mean Corpuscular HGB CONC 32.7 g/dL (32.0-36.0); Mean Corpuscular Hemoglobin 38.5 pg (27.0-31.0); Mean Platelet Volume 9.1 fL (7.4-10.4); Monocytes 16 % (0-10); Neutrophil 54 % (42-75); Platelet Count 86 10x3/uL (130-400); Platelet Morphology Comment Appears Decreased; Red Blood Cell (RBC) Count 2.97 mill/uL (4.70-6.10); White Blood Cell (WBC) Count 8.7 10x3/uL (4.8-10.8)
[2022-06-30] MEDS ORDERED: Vancomycin HCl 125 MG/5 ML (BATCHED) UDCUP PER TUBE SCH (07:20)
[2022-06-30] MEDS ORDERED: Dextrose 5%-Lactated Ringers 1,000 ML IV SCH (08:00)
[2022-06-30] MEDS: Pantoprazole 40 MG VIAL IVP SCH ×2 (08:28→19:49)
[2022-06-30] MEDS: Heparin 5,000 UNITS/ML VIAL SC SCH (08:29)
[2022-06-30] MEDS ORDERED: Cyanocobalamin (Vitamin B-12) 1,000 MCG TAB PER TUBE SCH (09:00)
[2022-06-30] MEDS ORDERED: Famotidine/PF 20 mg/2ml Vial SLOW IVP SCH (09:00)
[2022-06-30] MEDS ORDERED: Thiamine 100 MG TAB PER TUBE SCH (09:00)
[2022-06-30] MEDS ORDERED: Multivits W-Minerals Liquid 15 ML LIQ PER TUBE SCH (09:00)
[2022-06-30 10:42] VITALS: BP 104/62
[2022-06-30 10:53] LABS: Syphilis Antibody Nonreactive (Nonreactive); Syphilis Antibody Index 0.18 S/CO (<1.00 Non-Reactive)
[2022-06-30] MEDS ORDERED: Octreotide Acetate 1,250 MCG in Sodium Chloride 0.9% 250 ML 250 ML IVPB SCH (11:30)
[2022-06-30 11:50] VITALS: BMI 23.8
[2022-06-30] MEDS: Dextrose 5 % And 0.9 % NaCl 1,000 ML IV SCH (12:18)
[2022-06-30] MEDS ORDERED: Scopolamine 1.5 mg/72 hour Patch TD SCH (14:00)
[2022-06-30] MEDS ORDERED: Midodrine HCl 5 MG TAB PO SCH (15:00)
[2022-06-30] MEDS: Morphine 4 MG/ML VIAL SLOW IVP PRN ×5 (16:54→22:58)
[2022-06-30] MEDS: Lorazepam 2 MG/ML VIAL SLOW IVP PRN ×4 (16:54→22:58)
[2022-07-01] MEDS: Dextrose 5 % And 0.9 % NaCl 1,000 ML IV SCH (05:30)
[2022-07-01] MEDS: Morphine 4 MG/ML VIAL SLOW IVP PRN (08:04)
[2022-07-01] MEDS: Lorazepam 2 MG/ML VIAL SLOW IVP PRN (08:04)
[2022-07-01] MEDS: Pantoprazole 40 MG VIAL IVP SCH (08:08)
[2022-07-01 08:47] VITALS: TEMP 97.3
[2022-07-01 11:14] LABS: Hep B Surface AG-Rflx Sendout Negative (Negative); Hepatitis B Core Total Positive (Negative); Hepatitis B Surface AB-Sendout Reactive (.)
== END 2022-07-01 11:39 | disposition hospice, inpatient (51) | DRG 871 ==
LOC: ERS 16:05 → CCU 19:58
PROVIDERS: ADMIT Family Medicine; ATTEND Family Medicine
PROC: 3E03329 Introduction of Other Anti-infective into Peripheral Vein, Percutaneous Approach (ICD-10-PCS; principal; 2022-06-28)
PROC: 0BH17EZ Insertion of Endotracheal Airway into Trachea, Via Natural or Artificial Opening (ICD-10-PCS; 2022-06-29)
PROC: 5A1935Z Respiratory Ventilation, Less than 24 Consecutive Hours (ICD-10-PCS; 2022-06-29)
DX: A41.9 Sepsis, unspecified organism (principal); G93.41 Metabolic encephalopathy; K65.2 Spontaneous bacterial peritonitis; K76.7 Hepatorenal syndrome; I81 Portal vein thrombosis; K55.039 Acute (reversible) ischemia of large intestine, extent unspecified; K72.11 Chronic hepatic failure with coma; N17.9 Acute kidney failure, unspecified; E87.1 Hypo-osmolality and hyponatremia; K76.6 Portal hypertension; A04.72 Enterocolitis due to Clostridium difficile, not specified as recurrent; R18.8 Other ascites; Z51.5 Encounter for palliative care; K74.60 Unspecified cirrhosis of liver; R65.20 Severe sepsis without septic shock; D69.6 Thrombocytopenia, unspecified; E87.5 Hyperkalemia; B19.20 Unspecified viral hepatitis C without hepatic coma; T68.XXXA Hypothermia, initial encounter; A08.8 Other specified intestinal infections; N18.2 Chronic kidney disease, stage 2 (mild); Z20.822 Contact with and (suspected) exposure to COVID-19; Z88.5 Allergy status to narcotic agent; Z79.899 Other long term (current) drug therapy
CPT/HCPCS: 36415; 36416; 36600; 51702; 70450; 71045; 71250; 74018; 74177; 80053; 80202; 80306; 80307; 81003; 82140; 82550; 82553; 82607; 82805; 83605; 83690; 83735; 83880; 84100; 84145; 84443; 84484; 85025; 85610; 85730; 86704; 86706; 86780; 86803; 87040; 87077; 87086; 87149; 87186; 87324; 87328; 87329; 87340; 87389; 87449; 87505; 93005; 94002; 94003; 96365; 96367; C9113; J0692; J0696; J1644; J2060; J2270; J2543; J3370-JW; J3490; J7042; J7070; S0028; U0002

== ENCOUNTER 2022-07-01 11:52 | Inpatient (IN) | payer OTHER ==
[2022-07-01] MEDS ORDERED: Acetaminophen 650 MG Suppository PR PRN (12:15)
[2022-07-01] MEDS ORDERED: Scopolamine 1.5 mg/72 hour Patch TOP PRN (12:15)
[2022-07-01] MEDS ORDERED: Haloperidol Lactate 5 MG/ML VIAL SLOW IVP PRN (12:15)
[2022-07-01] MEDS ORDERED: diphenhydrAMINE 50 MG/ML VIAL IVP PRN (12:15)
[2022-07-01] MEDS ORDERED: Ondansetron PF 4 MG/2 ML Vial IVP PRN (12:15)
[2022-07-01] MEDS ORDERED: Bisacodyl 10 MG SUPP PR PRN (12:18)
[2022-07-01] MEDS: Lorazepam 2 MG/ML VIAL SLOW IVP PRN (12:30)
[2022-07-01] MEDS: Morphine 4 MG/ML VIAL SLOW IVP PRN ×2 (12:30→23:02)
[2022-07-02] MEDS: Lorazepam 2 MG/ML VIAL SLOW IVP PRN (00:48)
[2022-07-02] MEDS: Morphine 4 MG/ML VIAL SLOW IVP PRN ×2 (00:48→03:17)
[2022-07-02 06:59] VITALS: TEMP 97.1
== END 2022-07-02 09:10 | disposition expired | DRG 951 ==
LOC: CCU 11:52
PROVIDERS: ADMIT Family Medicine; ATTEND Family Medicine
DX: Z51.5 Encounter for palliative care (principal); Z66 Do not resuscitate; A04.72 Enterocolitis due to Clostridium difficile, not specified as recurrent; A41.9 Sepsis, unspecified organism; K65.2 Spontaneous bacterial peritonitis; K76.7 Hepatorenal syndrome; J96.90 Respiratory failure, unspecified, unspecified whether with hypoxia or hypercapnia; F14.10 Cocaine abuse, uncomplicated; K74.60 Unspecified cirrhosis of liver; K76.82 Hepatic encephalopathy; N19 Unspecified kidney failure; K72.10 Chronic hepatic failure without coma; Z87.11 Personal history of peptic ulcer disease; Z79.899 Other long term (current) drug therapy
CPT/HCPCS: J1200; J2060; J2270; J2405